=== PATIENT | male | born 1980 | race African-American/Black ===

== ENCOUNTER 2019-07-20 17:53 | Emergency (ER) | payer BC, MEDICAID ==
--- NOTE | 2019-07-20 18:44 | ER Document Report ---
ED Medical Screen (RME) - General Chief Complaint: Leg Swelling Stated Complaint: FALL/LEFT LEG PAIN AND HEAD PAIN Time Seen by Provider: 07/20/19 18:38 Primary Care Provider: DANYA ERICKSON MD [Primary Care Provider] - Follow up as needed Mode of Arrival: Ambulatory Information source: Patient Notes: This 39-year-old male presents to the emergency department with complaints of bilateral peripheral edema. Reports the swelling since January. Reports left ankle pain because he fell earlier today. Reports he has been seen at [facility] 4 days ago for the same thing. Reports he has been treated for cellulitis in the past. Discusses getting bit by insect bites and the swelling gets worse. Also reports he was told to keep his legs elevated. No peripheral edema noted no open wounds or sores patient complains of pain with touch. Patient also reports he has a history of a PE. I have greeted and performed a rapid initial assessment of this patient. A co mprehensive ED assessment and evaluation of the patient, analysis of test results and completion of the medical decision making process will be conducted by additional ED providers. Dictation of this chart was performed using voice recognition software; therefore, there may be some unintended grammatical errors. TRAVEL OUTSIDE OF THE [place] IN LAST 30 DAYS: No - Related Data Allergies/Adverse Reactions: No Known Allergies Allergy (Verified 07/20/19 18:42) Past Medical History Musculoskeltal Medical History: Reports Hx Arthritis - Immunizations Hx Diphtheria, Pertussis, Tetanus Vaccination: Yes Physical Exam - Vital signs Vitals: Temp Pulse Resp BP Pulse Ox 97.7 F 80 18 126/64 H 97 07/20/19 18:09 07/20/19 18:09 07/20/19 18:09 07/20/19 18:09 07/20/19 18:09 Course - Vital Signs Vital signs: Temp Pulse Resp BP Pulse Ox 97.7 F 80 18 126/64 H 97 07/20/19 18:09 07/20/19 18:09 07/20/19 18:07/20/19 18:09 07/20/19 18:09 Doctor's Discharge - Discharge Referrals: DANYA ERICKSON MD [Primary Care Provider] - Follow up as needed
--- NOTE | 2019-07-20 19:05 | RADIOLOGY REPORT (SQ) ---
EXAM DESCRIPTION: ANKLE LEFT COMPLETE COMPLETED DATE/TIME: 07/20/2019 6:53 pm REASON FOR STUDY: pain, fell COMPARISON: None. NUMBER OF VIEWS: Three views. TECHNIQUE: AP, lateral, and oblique radiographic images acquired of the left ankle. LIMITATIONS: None. FINDINGS: MINERALIZATION: Normal. BONES: No acute fracture or dislocation. No worrisome bone lesions. JOINTS: No effusions. SOFT TISSUES: No soft tissue swelling. No foreign body. OTHER: No other significant finding. IMPRESSION: NEGATIVE STUDY OF THE LEFT ANKLE. NO RADIOGRAPHIC EVIDENCE OF ACUTE INJURY. TECHNICAL DOCUMENTATION: JOB ID: [id number]- All Rights Reserved Reading location - IP/workstation name: [email or web address]
[2019-07-20 19:29] LABS: APPEARANCE,URINE CLEAR; BILIRUBIN,URINE NEGATIVE (NEGATIVE); COLOR,URINE YELLOW; GLUCOSE, URINE NEGATIVE (NEGATIVE); KETONES,URINE TRACE mg/dL (NEGATIVE); LEUKOCYTE ESTERASE,URINE NEGATIVE (NEGATIVE); NITRITE,URINE NEGATIVE (NEGATIVE); PROTEIN,URINE 30 mg/dL (NEGATIVE); URINE SPECIFIC GRAVITY 1.031
[2019-07-20 19:33] LABS: ABSOLUTE BASOPHILS # (AUTO) 0.1 10^3/uL (0.0-0.2); ABSOLUTE EOSINOPHILS # (AUTO) 0.3 10^3/uL (0.0-0.6); ABSOLUTE LYMPHOCYTES (AUTO) 3.6 10^3/uL (0.5-4.7); ABSOLUTE MONOCYTES (AUTO) 0.9 10^3/uL (0.1-1.4); ABSOLUTE NEUT (AUTO) 4.7 10^3/uL (1.7-8.2); EOSINOPHILS % (AUTO) 2.7 % (0-6); HEMATOCRIT 37.8 % (37.9-51.0); HEMOGLOBIN 12.6 g/dL (13.5-17.0); LYMPHOCYTES % (AUTO) 37.9 % (13-45); MEAN CORPUSCULAR HEMOGLOBIN 33.1 pg (27.0-33.4); MEAN CORPUSCULAR HGB CONC 33.3 g/dL (32.0-36.0); MEAN CORPUSCULAR VOLUME 99 fl (80-97); MONOCYTES % (AUTO) 9.6 % (3-13); PLATELET COUNT 367 10^3/uL (150-450); SEGMENTED NEUTROPHILS % (AUTO) 48.8 % (42-78); TOTAL CELLS COUNTED % (AUTO) 100 %; WHITE BLOOD COUNT 9.6 10^3/uL (4.0-10.5)
[2019-07-20 20:26] LABS: ALBUMIN 3.6 g/dL (3.5-5.0); ALKALINE PHOSPHATASE 48 U/L (38-126); ANION GAP 5 (5-19); ASPARTATE AMINO TRANSFERASE 23 U/L (17-59); BILIRUBIN,DIRECT 0.2 mg/dL (0.0-0.4); BILIRUBIN,TOTAL 0.4 mg/dL (0.2-1.3); BLOOD UREA NITROGEN 14 mg/dL (7-20); CALCIUM 9.1 mg/dL (8.4-10.2); CARBON DIOXIDE 29 mmol/L (22-30); CHLORIDE 104 mmol/L (98-107); GLUCOSE 93 mg/dL (75-110); TOTAL PROTEIN 6.2 g/dL (6.3-8.2)
--- NOTE | 2019-07-20 21:32 | ER Document Report ---
ED General - General Chief Complaint: Leg Swelling Stated Complaint: FALL/LEFT LEG PAIN AND HEAD PAIN Time Seen by Provider: 07/20/19 18:38 Primary Care Provider: DANYA ERICKSON MD [NO LOCAL MD] - Follow up as needed Mode of Arrival: Ambulatory TRAVEL OUTSIDE OF THE [place] IN LAST 30 DAYS: No - HPI Notes: 39-year-old male presents with bilateral lower extremity edema, left slightly greater than right. And ankle pain. Patient indicates for the last 3 or 4 days he developed right greater than left greater than right edema. Was seen in outside ED until the at cellulitis and started on antibiotic which she is taking but cannot member the name of. Apparently had tripped today and injured his lateral ankle, is concerned about the continued edema. Denies any orthopnea, no dyspnea on exertion. No fever, chills or sweats. No known history of heart failure, denies any use of street drugs. Moderate intensity, gradual onset, nonradiating. No other modifying factors, no other associated symptoms, no other provocative or palliative factors. - Related Data Allergies/Adverse Reactions: No Known Allergies Allergy (Verified 07/20/19 18:42) Past Medical History - General Information source: Patient - Social History Smoking Status: Never Smoker Family History: Reviewed & Not Pertinent Patient has suicidal ideation: No Patient has homicidal ideation: No - Medical History Notes: Denies any history of hypertension, A. fib Musculoskeletal Medical History: Reports Hx Arthritis - Immunizations Hx Diphtheria, Pertussis, Tetanus Vaccination: Yes Review of Systems - Review of Systems Notes: Review of systems as in the history of present illness, otherwise negative x 10 systems. Physical Exam - Vital signs Vitals: Temp Pulse Resp BP Pulse Ox 97.7 F 80 18 126/64 H 97 07/20/19 18:09 07/20/19 18:09 07/20/19 18:09 07/20/19 18:09 07/20/19 18:09 - Notes Notes: General: Well developed . HEENT: Normocephalic, atraumatic. Pupils equal round reactive to light. No JVD. Chest: No trauma. Respiratory: Good air exchange, normal excursion. Cardiac: Regular rhythm. No murmurs or gallops. Abdomen: Soft, benign. Nondistended. Nontender. Back: No asymmetry or gross abnormality. Motor: Grossly normal power and tone. Neurologic: Alert, nonfocal. Cranial nerves II-12 are intact. Sensation intact. Vascular: Well perfused. Normal peripheral pulses. Skin: No petechiae or purpura. Extremities: 1+ pedal pulses. Feet are warm and well-perfused. Bilateral 2+ pedal edema noted up to the mid tibial region. There is blanching mild pinkish erythema more consistent with chronic venous stasis than cellulitis. No discrete margins. There is additional evidence of discoloration and what appears to be chronic venous stasis changes. No palpable venous cord. Both extremities are symmetric. Left lateral malleolar tenderness. Course - Re-evaluation Re-evalutation: 07/20/19 21:30 Patient was evaluated by the [facility] provider prior to my evaluation. Studies / interventions have been ordered by this provider and may still be pending. On my initial evaluation, labs are available and show unremarkable CBC and chemistries. Urinalysis shows mild proteinuria. Plain films of the ankle are unremarkable. Duplex ultrasound left lower extreme is pending. Patient has what appears to be lymphatic or venous insufficiency. No evidence of DVT. Will trial a short course of Lasix compression stockings. I had an extensive conversation with him detailing the critical need for him to follow-up with primary care doctor to continue to work him up for this. Otherwise he has no clinical evidence to support left-sided heart failure. He has mild proteinuria and he understands a critical need for this to be followed as an outpatient to exclude nephrotic syndrome or other source of protein loss in his kidneys 07/20/19 21:31 07/20/19 22:56 Ultrasound is unremarkable. Patient does have proteinuria and understands a critical need for outpatient follow-up, return if worsening. Advised to utilize compression stockings. Return if he has any worsening. - Vital Signs Vital signs: Temp Pulse Resp BP Pulse Ox 97.7 F 80 18 126/64 H 97 07/20/19 18:09 07/20/19 18:09 07/20/19 18:09 07/20/19 18:09 07/20/19 18:09 - Laboratory Result Diagrams: 07/20/19 19:05 07/20/19 19:05 Laboratory results interpreted by me: 07/20/19 07/20/19 07/20/19 19:05 19:05 19:05 RBC 3.80 L Hgb 12.6 L Hct 37.8 L MCV 99 H Total Protein 6.2 L Urine Protein 30 H Urine Ketones TRACE H Urine Urobilinogen 2.0 H Discharge - Discharge Clinical Impression: Peripheral edema Condition: Good Disposition: HOME, SELF-CARE Instructions: Edema, Peripheral ([facility]) Additional Instructions: You must follow-up with your primary care doctor over the next several days Referrals: DANYA ERICKSON MD [NO LOCAL MD] - Follow up in 3-5 days
--- NOTE | 2019-07-20 22:38 | RADIOLOGY REPORT (SQ) ---
US LOWER EXTREMITY VEINS EXAM DATE: 07/20/2019 6:42 PM CDT HISTORY: Leg pain and swelling. COMPARISON: None. TECHNIQUE: Shea-scale, color Doppler and spectral Doppler images of the bilateral lower extremity veins were obtained. FINDINGS: RIGHT: The right common femoral, superficial femoral and popliteal veins are patent and compressible. Normal augmentation and color Doppler blood flow in the aforementioned veins. The visualized calf veins are also patent. LEFT: The left common femoral, superficial femoral and popliteal veins are patent and compressible. Normal augmentation and color Doppler blood flow in the aforementioned veins. The visualized calf veins are also patent. IMPRESSION: No evidence of deep venous thrombosis in the bilateral lower extremities.
[2019-07-20 23:07] VITALS: BP 143/72
--- NOTE | 2019-07-21 01:18 | VASCULAR PRELIM REPORT ---
Provider Note Provider Note: Bilateral lower extremity veins negative for DVT. Considerable leg edema on greay scale imaging.
== END 2019-07-20 23:06 | disposition home or self-care (01) ==
LOC: ER 17:53
DX: R60.0 Localized edema (principal)
CPT/HCPCS: 36415; 80053; 81001; 85025; 93970; 99284